=== PATIENT | female | born 1970 | race American Indian/Alaskan Native ===

== ENCOUNTER 2017-11-15 08:03 | Outpatient (CLI) | payer MEDICAID ==
--- NOTE | 2017-11-15 10:35 | Mammography Report ---
RIGHT DIGITAL DIAGNOSTIC MAMMOGRAM: 11/15/17 08:03:00 CLINICAL: For clip placement immediately status post MRI guided needle biopsy. Known cancer in the same breast. COMPARISON:09/28/17 FINDINGS: A second biopsy clip is now identified in the upper outer quadrant and correlates with the MRI biopsy site. It is approximately 4 cm inferior to the known cancer. IMPRESSION: Concordant clip placement status post MRI biopsy. BI-RADS CATEGORY: 6--Known Cancer Pathology pending.
--- NOTE | 2017-11-15 11:30 | Magnetic Resonance Report ---
MRI GUIDED VACUUM ASSISTED CORE BIOPSY RIGHT BREAST: 11/15/17 08:03:00 CLINICAL: Known right breast cancer with additional suspicious non-Mass enhancement by recent MRI. COMPARISON: 10/11/17 MRI FINDINGS: Consent for the procedure was obtained and 17.0 cc of Multihance was injected intravenously without incident. A Vibrant dynamic postcontrast series was performed on a 1.5 [place] magnet using an 8 channel Sentinelle dedicated breast coil. Focal non-Mass enhancement measuring approximately 1.8 x 1.5 cm was localized and targeted using [employer] Sentinelle biopsy software. The skin was anesthetized with 1% lidocaine and a small dermatotomy was made. 2% lidocaine was administered for deeper anesthesia. 9-G biopsy was performed with an CardStar vacuum assisted device. Imaging demonstrated satisfactory positioning of the probe and samples were obtained. A clip was placed after confirmation of adequate sampling. The probe was removed and hemostasis was achieved with pressure to the site. A sterile dressing was applied. The patient tolerated the procedure well and there were no apparent complications. A two view mammogram demonstrated concordant clip placement. The biopsied lesion is approximately 4 cm inferior to the known cancer. The patient left the department in good condition and was given instructions for wound care and follow-up. IMPRESSION: Uncomplicated MRI biopsy with clip placement breast.
== END 2017-11-15 08:04 | disposition home or self-care (01) ==
LOC: SPVIMAG 08:03
PROVIDERS: ATTEND Surgery
DX: C50.411 Malignant neoplasm of upper-outer quadrant of right female breast (principal); D05.11 Intraductal carcinoma in situ of right breast
CPT/HCPCS: 19085; 77065; 88305; A9577; 88342; 88361

== ENCOUNTER 2018-03-27 11:08 | Outpatient (CLI) | payer MEDICAID ==
--- NOTE | 2018-03-28 14:56 | Mammography Report ---
BONE DEXA:03/27/18 11:08:00 CLINICAL: History of right upper outer breast cancer and on aromatase inhibitor. TECHNIQUE: Two site bone DEXA performed on an Hologic scanner. FINDINGS: The average BMD of the lumbar spine L1-L4 is 1.188g/cm squared with a T-score of +0.3 and a Z-score of up to 1.0. The average BMD of the left hip is 1.027g/cm squared with a T-score of 0 and a Z-score of +0.2. IMPRESSION: WHO classification: Normal with average fracture risk based on both lumbar spine and left hip measurements. RECOMMENDATION: Clinical correlation and routine screening. DEFINITIONS: BMD = Bone Mineral Density T-score = BMD related to mean peak bone mass of young adult (mean expressed in Standard Deviation) Z-score = Age matched BMD expressed in SD World Health Organization (WHO) Diagnostic Criteria Normal T-score > -1 SD Osteopenia T-score between -1 and -2.4 SD Osteoporosis T-score -2.5 SD or below NOTE: BMD is not the only risk factor for fracture. One should also consider factors such as the patient's age, risk of falling, previous osteoporotic fracture, family history of osteoporotic fractures, current smoker, and low body weight. Z-scores are not calculated if >80 years of age.
== END 2018-03-27 11:09 | disposition home or self-care (01) ==
LOC: SPVWC 11:08
PROVIDERS: ATTEND Internal Medicine Hematology
DX: C50.411 Malignant neoplasm of upper-outer quadrant of right female breast (principal); F17.210 Nicotine dependence, cigarettes, uncomplicated
CPT/HCPCS: 77080

== ENCOUNTER 2018-10-15 08:32 | Outpatient (CLI) | payer BC ==
--- NOTE | 2018-10-15 09:18 | Mammography Report ---
LEFT DIGITAL DIAGNOSTIC MAMMOGRAM with CAD: 10/15/18 08:32:00 CLINICAL: History of right breast cancer status post right mastectomy with implant reconstruction and status post left reduction mammoplasty. COMPARISON:09/14/17 FINDINGS: The breast is heterogeneously dense, which may obscure small masses. The breast is smaller than on the prior exam.No mass, architectural distortion or suspicious calcifications. IMPRESSION: No mammographic evidence of malignancy. BI-RADS CATEGORY: 1 - - Negative RECOMMENDATION: Routine mammographic screening in one year. ACR BI-RADS MAMMOGRAPHIC CODES: 0 = Needs additional imaging evaluation; 1 = Negative; 2 = Benign; 3 = Probably benign; 4 = Suspicious; 5 = Malignant; 6 = Known biopsy-proven malignancy COMMENT: 1. Dense breast tissue, i.e., adenosis, fibrocystic changes, etc., may obscure an underlying neoplasm. 2. Approximately 10% of cancers are not detected with mammography. 3. A negative mammography report should not delay biopsy if a clinically suspicious mass is present. COMMENT: Patient follow-up letters are generated by our [employer] application.
== END 2018-10-15 08:33 | disposition home or self-care (01) ==
LOC: SPVWC 08:32
PROVIDERS: ATTEND Surgery
DX: C50.411 Malignant neoplasm of upper-outer quadrant of right female breast (principal)

== ENCOUNTER 2020-04-27 09:39 | Outpatient (CLI) | payer BC ==
--- NOTE | 2020-04-27 11:16 | Mammography Report ---
DIGITAL DIAGNOSTIC MAMMOGRAM WITH CAD, 04/27/2020 INDICATION: The patient has a personal history of right breast cancer treated with mastectomy. She a lso has a history of left cyst drainage in 2019. She reports no new left breast symptoms. TECHNIQUE: Digital left mammographic imaging was performed. This examination was interpreted with the benefit of Computer-aided Detection analysis. COMPARISON: 10/15/2018, 05/24/2016 FINDINGS: Breast Density: The breasts are heterogeneously dense, which may obscure small masses. There is no evidence of dominant mass, suspicious calcifications or architectural distortion in the l eft breast. Architectural changes from left breast reduction are again noted. IMPRESSION: Follow up recommendation: Routine yearly BI-RADS Category 2: Benign. A "normal" or negative report should not discourage follow up or biopsy of a clinically significant f inding. A written summary of these findings will be mailed to the patient. The patient will be entered into a mammography reporting system which will generate a reminder letter for the patient's next appointmen t at the appropriate interval. According to the [employer], yearly mammograms are recommended starting at age 40 and continuing as long as a woman is in good health. Breast MRI is recommended for women with an klaudia roximately 20-25% or greater lifetime risk of breast cancer, including women with a strong family his tory of breast or ovarian cancer and women who have been treated for Hodgkin's disease. Signer Name: Jennifer Weaver MD Signed: 04/27/2020 11:12 AM Workstation Name: [email or web address]
== END 2020-04-27 09:40 | disposition home or self-care (01) ==
LOC: SPVWC 09:39
PROVIDERS: ATTEND Surgery
DX: R92.8 Other abnormal and inconclusive findings on diagnostic imaging of breast (principal); Z85.3 Personal history of malignant neoplasm of breast

== ENCOUNTER 2020-10-21 08:15 | Outpatient (CLI) | payer BC ==
--- NOTE | 2020-10-21 09:53 | Mammography Report ---
DIGITAL SCREENING MAMMOGRAM WITH CAD, 10/21/2020 CLINICAL INFORMATION / INDICATION: Routine screening TECHNIQUE: Digital bilateral 2D mammography was obtained in the craniocaudal and mediolateral obliqu e projections. This examination was interpreted with the benefit of Computer-Aided Detection analysis . COMPARISON: 10/21/2019 FINDINGS: Breast Density: The breasts are heterogeneously dense, which may obscure small masses. No dominant mass, suspicious calcifications, or architectural distortion in either breast. Surgical changes are again noted. IMPRESSION: No mammographic evidence of malignancy. Follow up recommendation: Routine yearly BI-RADS Category 2: Benign. A "normal" or negative report should not discourage follow up or biopsy of a clinically significant f inding. A written summary of these findings will be mailed to the patient. The patient will be entered into a mammography reporting system which will generate a reminder letter for the patient's next appointmen t at the appropriate interval. The [employer] recommends yearly mammograms starting at age 40 and continuing as l emma as a woman is in good health. Breast MRI is recommended for women with an approximate 20-25% or greater lifetime risk of breast cancer, including women with a strong family history of breast or ova dev cancer or who have been treated for Hodgkin's disease. Signer Name: Pedrito Coffey MD Signed: 10/21/2020 9:49 AM Workstation Name: [email or web address]
== END 2020-10-21 08:16 | disposition home or self-care (01) ==
LOC: SPVWC 08:15
PROVIDERS: ATTEND Surgery
DX: Z12.31 Encounter for screening mammogram for malignant neoplasm of breast (principal); Z85.3 Personal history of malignant neoplasm of breast

== ENCOUNTER 2020-10-21 08:31 | Outpatient (CLI) | payer BC ==
--- NOTE | 2020-10-21 09:52 | Mammography Report ---
DEXA BONE DENSITY SCAN INDICATION / CLINICAL INFORMATION: ON AROMATASE THERAPY Z79.811. 50 years Female COMPARISON: None available. LUMBAR SPINE, L1-L4: - Bone mineral density (BMD) = 1.090 g/cm2. - T-score = -0.5 - Z-score = 0.3 Change (%) since most recent prior (if available): None available. LEFT HIP, NECK : - Bone mineral density (BMD) = 0.839 g/cm2. - T-score = -0.8 - Z-score = -0.2 Change (%) since most recent prior (if available): None available. IMPRESSION: 1. WHO Classification: Normal bone density. Fracture Risk: Not Increased. Note: 10-Year Fracture Risk (FRAX) not reported. This DEXA unit lacks FRAX functionality. BMD Reporting Guidelines (ISCD, 2015) BMD Reporting in Postmenopausal Women and in Men Age 50 and Older - T-scores are preferred. - The WHO densitometric classification is applicable. BMD Reporting in Females Prior to Menopause and in Males Younger Than Age 50 - Z-scores, not T-scores, are preferred. This is particularly important in children. - A Z-score of -2.0 or lower is defined as below the ex ge for age, and a Z-score above -2.0 is withi n the expected range for age. - Osteoporosis cannot be diagnosed in men under age 50 on the basis of BMD alone. - The WHO diagnostic criteria may be applied to women in the menopausal transition. http://www.iscd.org/official-positions/9211-nyir-fsutsbde-positions-adult/ Signer Name: Brendon Mccurdy MD Signed: 10/21/2020 9:48 AM Workstation Name: [email or web address]
== END 2020-10-21 08:32 | disposition home or self-care (01) ==
LOC: SPVWC 08:31
PROVIDERS: ATTEND Internal Medicine Hematology
DX: Z12.31 Encounter for screening mammogram for malignant neoplasm of breast (principal); C50.411 Malignant neoplasm of upper-outer quadrant of right female breast; Z79.811 Long term (current) use of aromatase inhibitors
CPT/HCPCS: 77080